=== PATIENT | male | born 1975 | race Caucasian/White ===

== ENCOUNTER 2017-09-17 08:34 | Day surgery (SDC) | payer BC ==
[2017-09-17] MEDS ORDERED: Propofol 10 mg/ml Inj (20 ML) ONE ×2 (10:07→10:23)
--- NOTE | 2017-09-17 10:08 | CP.SDSHP ---
Same Day Surgery H & P - History Proposed Procedure: COLONSCOPY Pre-Op Diagnosis: SEE NOTES - Previous Medical/Surgical History Pain: 2.Mild Pain - Allergies Allergies: Allergies latex Allergy (Verified 09/17/17 09:14) RASH - Physical Exam General Appearance: N Vital Signs: Vital Signs 09/17/17 09:00 Temperature 98.6 F Pulse Rate 801 H Respiratory 20 Rate Blood Pressure 118/63 O2 Sat by Pulse 100 Oximetry Mental Status: Alert & Oriented x3 Neuro: WNL Heart: WNL Lungs: WNL GI: Other - {Optional Preform as Required} Breast: WNL Abdomen: Other Rectal: Other Integument: WNL : WNL Ortho: WNL ENT: WNL - Impression Pt. Evaluated Today:Candidate for Anesthesia & Procedure: Yes - Date & Time Time: 10:08 Short Stay Discharge - Short Stay Discharge Admitting Diagnosis/Reason for Visit: COLON SCREENING Disposition: HOME/ ROUTINE
[2017-09-17] MEDS ORDERED: Belladonna-Phenobarbital PO ONE (10:50)
[2017-09-17 11:34] VITALS: TEMP 97
[2017-09-17 11:40] VITALS: BP 120/70; PULSE 78; RESP 20; O2SAT 99
== END 2017-09-17 11:30 | disposition home or self-care (01) ==
LOC: C.ENDO 08:34
PROVIDERS: ATTEND Specialist
DX: Z12.11 Encounter for screening for malignant neoplasm of colon (principal); K58.9 Irritable bowel syndrome, unspecified; K64.8 Other hemorrhoids
CPT/HCPCS: 45380; 88305; J2001; J2704; J3010